=== PATIENT | male | born 1960 | race Caucasian/White ===

== ENCOUNTER 2019-05-14 17:10 | Outpatient (REF) | payer MEDICAID, SELFPAY ==
[2019-05-14 20:15] LABS: Abs Immature Grans 0.01 k/cumm (0.0-0.09); Absolute Basophil Count 0.03 k/cumm (0.0-0.2); Absolute Eosinophil Count 0.02 k/cumm (0.0-0.7); Absolute Monocyte Count 0.42 k/cumm (0.11-0.7); Absolute Neutrophil Count 1.61 k/cumm (1.2-6.7); Basophils % 0.9; Eosinophils % 0.6; HCT 44.9 % (40.0-50.0); HGB 15.3 g/dL (13.5-17.5); Immature Grans % 0.3; Lymphocytes % 38.3; Mean Corp. HGB Concentration 34.1 g/dL (32.0-36.0); Mean Corpuscular Hemoglobin 28.9 pg (27.0-33.0); Mean Corpuscular Volume 84.9 fL (80-95); Mean Platelet Volume 9.7 fL (8.0-11.0); Monocytes % 12.4; Neutrophils % 47.5; Platelet Count 246 x1000/uL (130-400); RBC 5.29 m/cumm (4.50-6.00); RBC Distribution Width 13.1 % (11.8-14.1); White Blood Cell Count 3.39 k/cumm (4.4-10.8)
[2019-05-14 20:40] LABS: ALT 62 U/L (12-78); AST 27 U/L (15-37); Albumin 3.9 g/dL (3.4-5.0); Alkaline Phosphatase 64 U/L (46-116); Anion Gap 9.2 mmol/L (3-11); BUN 18 mg/dL (7-18); Bilirubin, Total 0.3 mg/dL (0.2-1.0); CO2 27.8 mmol/L (21.0-32.0); CREATININE 0.98 mg/dL (0.70-1.30); Calcium 8.2 mg/dL (8.5-10.1); Chloride 102 mmol/L (98-107); Glucose 97 mg/dL (70-100); Potassium 4.4 mmol/L (3.5-5.1); Sodium 139 mmol/L (136-145); Total Protein 7.2 g/dL (6.4-8.2)
[2019-05-16 10:53] LABS: Lyme Ab w Rflx to Lyme Confirm Negative
[2019-05-17 17:21] LABS: Anaplasma phagocytophilum Negative (Negative); B. miyamotoi PCR Negative (Negative); Babesia divergens/MO-1 Negative (Negative); Babesia duncani Negative (Negative); Babesia microti Negative (Negative); Ehrlichia chaffeensis Negative (Negative); Ehrlichia ewingii/canis Negative (Negative); Ehrlichia muris eauclairensis Negative (Negative)
== END 2019-05-14 17:30 ==
LOC: NCHCN 17:10
PROVIDERS: PCP Nurse Practitioner Adult Health; Visit Provider Family Medicine
DX: R50.9 Fever, unspecified (principal)
CPT/HCPCS: 80053; 87798; 85025; 86618; 87207

== ENCOUNTER 2019-07-18 12:29 | Outpatient (REF) | payer MEDICAID, SELFPAY ==
[2019-07-18 13:42] LABS: Calculated LDL 172 mg/dL; Cholesterol 228 mg/dL (50-200); Glucose 102 mg/dL (70-100); HDL Cholesterol 42 mg/dL (40-60); Triglyceride 73 mg/dL (30-150)
== END 2019-07-18 12:49 ==
LOC: NCHCN 12:29
PROVIDERS: PCP Nurse Practitioner Adult Health; Visit Provider Family Medicine
DX: Z00.00 Encounter for general adult medical examination without abnormal findings (principal); Z13.1 Encounter for screening for diabetes mellitus; Z13.220 Encounter for screening for lipoid disorders
CPT/HCPCS: 80061; 82947

== ENCOUNTER 2020-03-11 14:13 | Outpatient (REF) | payer MEDICAID, SELFPAY ==
[2020-03-11 19:48] LABS: Abs Immature Grans 0.01 k/cumm (0.0-0.09); Absolute Basophil Count 0.02 k/cumm (0.0-0.2); Absolute Eosinophil Count 0.07 k/cumm (0.0-0.7); Absolute Lymphocyte Count 1.74 k/cumm (1.2-3.4); Absolute Monocyte Count 0.47 k/cumm (0.11-0.7); Absolute Neutrophil Count 1.82 k/cumm (1.2-6.7); Basophils % 0.5; Eosinophils % 1.7; HCT 46.2 % (40.0-50.0); HGB 15.5 g/dL (13.5-17.5); Immature Grans % 0.2 %; Lymphocytes % 42.1; Mean Corp. HGB Concentration 33.5 g/dL (32.0-36.0); Mean Corpuscular Hemoglobin 28.5 pg (27.0-33.0); Mean Corpuscular Volume 85.1 fL (80-95); Mean Platelet Volume 9.4 fL (8.0-11.0); Monocytes % 11.4; Neutrophils % 44.1; Platelet Count 329 x1000/uL (130-400); RBC 5.43 m/cumm (4.50-6.00); RBC Distribution Width 12.7 % (11.8-14.1); White Blood Cell Count 4.13 k/cumm (4.4-10.8)
[2020-03-13 12:50] LABS: HIV-1/2 Ag & Ab Screen Negative (Negative)
[2020-03-13 13:52] LABS: Hepatitis B Surface Ag Negative (Negative)
== END 2020-03-11 14:33 ==
LOC: NCHCN 14:13
PROVIDERS: PCP Nurse Practitioner Adult Health; Visit Provider Family Medicine
DX: D72.819 Decreased white blood cell count, unspecified (principal); Z11.4 Encounter for screening for human immunodeficiency virus [HIV]; Z11.59 Encounter for screening for other viral diseases
CPT/HCPCS: 87340; 87389; 85025

== ENCOUNTER 2023-11-07 12:06 | Outpatient (REF) | payer MEDICAID, SELFPAY ==
[2023-11-07 16:52] LABS: Calculated LDL 201 mg/dL (<100); Cholesterol 288 mg/dL (<200); HDL Cholesterol 47 mg/dL (40-60); Triglyceride 203 mg/dL (<150)
[2023-11-08 09:25] LABS: PSA, Screening 0.5 ng/mL (<=4.5)
== END 2023-11-07 12:07 | disposition home or self-care (01) ==
LOC: NCHCN 12:06
PROVIDERS: PCP Nurse Practitioner Adult Health; Visit Provider Family Medicine
DX: Z13.220 Encounter for screening for lipoid disorders (principal); Z13.1 Encounter for screening for diabetes mellitus; Z12.5 Encounter for screening for malignant neoplasm of prostate
CPT/HCPCS: 80061; 84153; 83036

== ENCOUNTER 2024-02-09 08:01 | Day surgery (SDC) | payer MEDICAID, SELFPAY ==
--- NOTE | 2024-02-08 22:19 | W.COLOREPORT ---
Date of service: 02/09/24 Time of Service: 09:19 Colonoscopy Report Date of procedure: 02/09/24 Pre-op diagnosis general: crc screening Post-op diagnosis procedure note: other (Polyps/diverticulosis/internal hemorrhoids) Surgeon: Opal Choudhury Anesthesia Type: General:No Airway Estimated blood loss (mL): 1 Pathology: none sent Complications: None Disposition: same day Prep: Miralax/Dulcolax Retraction Time: 20 Procedure Description: After informed consent was obtained the patient was taken to the procedure room and placed in a left decubitous position. Monitors were applied and a time out was done. The patients name, date of , procedure, allergies to medications and metal in their body was reviewed. The patient was then sedated. Once sedated and comfortable a rectal exam was done. External exam was normal. Internal exam revealed a normal sphincter tone and no palpable masses. The scope was then introduced and retrofelexed. Grade 2 internal hemorrhoids x 2 columns were identified. The scope was then advanced to the cecum without difficulty. The TI and appendiceal orifice were identified. The scope was then slowly retracted over 20 minutes back into the rectum. He had x 2 flat 0.5 cm polyps in the cecum. These were removed with a cold biting forcep. All specimen is retrieved and no bleeding is noted. 30 cm he has another 0.5 cm flat polyp that is removed with a cold biting forcep. He has few moderate-sized diverticuli confined to the sigmoid colon. There is no signs of active bleeding or infection. The mucosa is pink and healthy with a normal vascular pattern. The scope was removed and the patient was woken up and taken back to Same day surgery in stable condition. The patient tolerated the procedure well and there were no immediate complications. Follow up: The patient should follow up in 5-7 years, path pd unless they develop changes in bowel habits or other new gastrointestinal complaints. [place] Bowel Prep [place] Bowel Prep Right Colon: 3 Left Colon: 3 Transverse Colon: 3 Total Score: 9
--- NOTE | 2024-02-08 22:20 | PDOC.DSDIS_ITS ---
Date of service: 02/09/24 Time of Service: 10:00 Discharge Plan Disposition Patient Disposition: HOME Condition: Good Discharge Details Reason For Visit: crc screening Attending Provider: Opal Choudhury Primary Care Provider: Max Elam Home Meds and New Rx's Prescriptions: Continued multivitamin 1 EACH tablet 1 ea PO DAILY vardenafil [Levitra] 10 MG tablet 10 mg PO PRN sildenafil 50 mg tablet 50 mg PO DAILY PRN Rx Instructions: administer 30 minutes to 4 hours before activity atorvastatin 40 mg tablet 40 mg PO DAILY Discontinued bisacodyl [Dulcolax (bisacodyl)] 5 mg tablet,delayed release (DR/EC) 5 mg PO ONCE Qty: 4 0RF Rx Instructions: Take per colonoscopy instructions provided by ordering providers office polyethylene glycol 3350 17 gram/dose powder 17 g PO ONCE Qty: 238 0RF Rx Instructions: Take per colonoscopy instructions provided by ordering providers office Discharge Instructions Additional Instructions: DSU Colonoscopy Post- Op Instructions Instructions for Everyone who is given Anesthesia: For your safety, please do the following for the next twenty-four (24) hours: *Do Not operate a motor vehicle (car, truck, motorcycle, etc.) *Do Not drink alcoholic beverages or use any recreational drugs for the first 24 hours or while taking pain medications. The medications in your body may have a reaction that can be dangerous. *Do Not make any important decisions or sign any important papers. Findings: -diverticula-make sure you are moving your bowels on a regular basis and not straining. If you find you are having problems with constipation or straining, it is recommended you start a fiber product such Metamucil. See handout -Adenomatous polyps Follow up: -My office will send you a letter in 2 to 3 weeks time with the results of the polyps and what we want you to repeat the colonoscopy. Most likely 5 to 7 years time. 1. No lifting over 20 pounds or strenuous activity for the first 24 hours after your procedure. After 24 hours there are no restrictions on your activity but you may feel fatigued for a few days. 2. After you arrive home you may have a light meal and return to your normal diet as you can tolerate it without feeling sick to your stomach. 3. You may have a bloated, gaseous feeling in your belly (abdomen) after a colonoscopy. Passing gas and belching will help. Walking or lying down on your left side with your knees flexed may relieve the discomfort. Call the office at [phone] (Office) or [phone] (Hospital) right away if you notice any of the following: a.Vomiting of blood or ?coffee ground stools?. b.Rectal bleeding 1Tbsp, blood clots or continuous bleeding. c.Severe belly (abdominal) pain. d.A hard distended belly (abdomen) and an inability to pass gas. 4. Please don?t expect to have a normal BM (bowel movement) for 2-3 days after your procedure. 5. If there are questions regarding the findings of your procedure, please contact your doctor 6. If you are unable to contact your doctor with a problem, contact the hospital at [phone]. 7. Continue all your regular medications unless directed otherwise. I understand the above instructions and have no questions. Signature of Patient or Adult Escort Name of Responsible Adult Escort Signature of Nurse Date/Time Stand Alone Forms: Anesthesia Discharge Inst., Estrellita Ashby (BRANDON) Activity:: see above Activity:: see above Diet:: see above Discharge Data Discharge Date/Time-TO BE ENTERED AT DEPARTURE: 02/09/24 08:02 DS: Diagnosis Discharge Diagnosis (1) High cholesterol: (2) Diverticula of colon: Status: Acute Asessment and Plan: The patient is seen and examined after their colonoscopy.? The patient has been able to pass gas.? They are not having abdominal pain.? They have been able to tolerate liquids and a snack.? They do not have any nausea or vomiting.? They are not having any chest pain or shortness of breath.??? They are not having any rectal bleeding. Their vital signs have been stable-see nursing notes. We discussed findings during their colonoscopy, and any biopsies that were done/polyps that were removed. The patient will be sent a letter with any biopsy results, and when to repeat the colonoscopy.-see discharge instructions. Patient was given explicit instructions to follow-up regarding colonoscopy-refer to discharge instructions.? We reviewed resumption of medications. Patient verbalized understanding and discharged in stable and satisfactory condition- See nursing notes. (3) Adenomatous polyps: Status: Acute
[2024-02-09 08:17] VITALS: BP 135/85; PULSE 70; RESP 16; TEMP 36.5; O2SAT 97
[2024-02-09] MEDS: Lactated Ringers 1,000 ML 80 ML IV (08:25)
--- NOTE | 2024-02-09 08:36 | ANES.PREOP_ITS ---
General Info Date of Service Date Performed: 02/09/24 Height: 5 ft 7 in Weight: 90.775 kg Body Mass Index (BMI): 31.3 Surgical Procedure: Operation Date: 02/09/24 08:50 Proposed Procedure Side Surgeon p Colonoscopy Opal Choudhury, Actual Procedure Side Surgeon p Colonoscopy Not Applicable Opal Choudhury, Pre-Op Diagnosis Post-Op Diagnosis Screening Meds Allergies and Home Medications Allergies Allergy/AdvReac Type Severity Reaction Status Date / Time hayfever AdvReac Intermediate congestion, Uncoded 02/09/24 08:15 sneezing Home Medication Medication Instructions Recorded Levitra 10 mg tablet (vardenafil) 10 mg PO PRN 10/21/13 multivitamin 1 ea PO DAILY 10/21/13 atorvastatin 40 mg tablet 40 mg PO DAILY 12/18/23 sildenafil 50 mg tablet 50 mg PO DAILY PRN 12/18/23 Current Visit Medications: Current Medications Generic Name Dose Route Start Last Admin Trade Name Freq PRN Reason Stop Dose Admin Hyoscyamine Sulfate 0.125 mg 02/09/24 03:02 Hyoscyamine 0.125 Mg Sl/Oral/Chew SL 03/10/24 03:01 DIRECTED PRN Ringer's Solution 1,000 mls @ 80 mls/hr 02/09/24 06:00 02/09/24 08:25 IV 03/09/24 23:59 80 mls/hr INFUSION UDAY Administration IV Miscellaneous Supplies 1 each 02/09/24 06:00 Iv Access IV 03/09/24 23:59 DIRECTED UDAY Ondansetron HCl 4 mg 02/09/24 03:02 Ondansetron 4 Mg/2 Ml Vial IVP 03/10/24 03:01 Q4H PRN PRN Nausea / Vomiting Sodium Chloride 0 ml 02/09/24 06:00 Normal Saline Flush 10 Ml Syr IV 03/09/24 23:59 PRN PRN Sodium Chloride 0 ml 02/09/24 06:00 Normal Saline 10 Ml Vial IJ 03/09/24 23:59 DIRECTED PRN Sterile Water 0 ml 02/09/24 06:00 Water,Injection,Sterile 10 Ml Vial IJ 03/09/24 23:59 DIRECTED PRN PFSH Medical History Medical History (Updated 02/07/24 @ 12:53 by Patrick Kim) High cholesterol Surgical History Surgical History (Updated 02/07/24 @ 12:53 by Patrick Kim) Hx of colonoscopy Tobacco Smoking/Tobacco Use Status: Never Alcohol Alcohol Intake: current Alcohol intake frequency: a few times a week Alcohol type: beer and wine Substance Use Substance use: Never Substance use type: does not use Vital Signs and Lab Results Vital Signs Most Recent Vital Signs in EMR: Most Recent Vital Signs Temp Pulse Resp BP Pulse Ox 36.5 C 70 16 135/85 97 02/09/24 08:17 02/09/24 08:17 02/09/24 08:17 02/09/24 08:17 02/09/24 08:17 Lab Results Blood Type / Crossmatch: No Data to Display Complete Blood Count: No Data to Display Complete Metabolic Panel: No Data to Display Liver Function Panel: No Data to Display Coagulation Panel: No Data to Display Cardiac Panel: No Data to Display Arterial Blood Gas: No Data to Display Venous Blood Gas: No Data to Display Pancreas Panel: No Data to Display Thyroid Panel: No Data to Display Infectious Disease: 2 No Data to Display Blood Cultures: No Data to Display Toxicology Panel: No Data to Display Anesthesia Assessment and Plan Anesthesia History Personal History: No History of Anesthesia Complications Family History: No Family History of Anesthesia Complications Exercise Tolerance Exercise Tolerance: Metabolic Equivalents>4 Pertinent Negatives Pertinent Negatives: No Symptoms of GERD Cardiac & Pulmonary Exam Cardiac Exam: Normal S1/S2 Heart Sounds Pulmonary Exam: Clear Bilateral Breath Sounds Implantable Cardiac Device Does patient have a Pacemaker or an ICD?: No Airway Exam Known Difficult Airway: No Mallampati Class: 2 Mouth Opening: Normal (> 3cm) Thyromental Distance: Greater than 3 cm Neck Range of Motion: Full ROM Neck Circumference: Normal Teeth Condition: Normal Dentition ASA Classification ASA Score: ASA 2 Emergency Case?: No NPO Status NPO Status: NPO Clears >2 hours, Solids >8 hours Anesthesia Plan Resuscitation Status: Full Code Anesthesia Technique: General Anesthesia Airway Planned: Natural Airway Monitors Used: Standard Monitors
[2024-02-09 08:37] VITALS: BMI 31.3
--- NOTE | 2024-02-09 08:49 | BOWEL_PTH ---
PATIENT: Albert Mckeon LOC: [facility] U#:[id number] AGE/SX: 63/M ROOM: RE02/09/[address]: Opal Choudhury : 1960 BED: DIS: 02/09/2024 SPEC #: [id number] RECD: 02/09/24 12:57 STATUS: LINDY REQ #: [id number] LINDA: 02/09/24 08:[address]: Opal Choudhury DEPT: Surgical Specimen RECD BY: Sarah Temple ENTERED: 02/09/24 12:59 SP TYPE: Bowel OTHR DR: Max Elam Tissues: 1 - BIOPSY BOWEL 2 - BIOPSY BOWEL Procedures: GROSS AND MICRO LEVEL 4 Comments: [id number]
[2024-02-09 09:17] VITALS: BP 116/70; PULSE 65; RESP 16; TEMP 36.5; O2SAT 96
[2024-02-09 09:29] VITALS: BP 118/85; PULSE 72; RESP 16; TEMP 36.6; O2SAT 98
--- NOTE | 2024-02-09 10:16 | W.ANESPOSTOP ---
Postoperative Evaluation Date, Time and Location Date Performed: 02/09/24 Time Performed: 10:17 Patient Location: Day Surgery Unit Vital Signs Most Recent Imported Vital Signs: Most Recent Vital Signs Temp Pulse Resp BP Pulse Ox 36.6 C 72 16 118/85 98 02/09/24 09:29 02/09/24 09:29 02/09/24 09:29 02/09/24 09:29 02/09/24 09:29 Pain Score Most Recent Pain Score: Most Recent Pain Score Pain Level 0 02/09/24 09:29 Assessment Mental Status: Awake (Alert & Oriented to Patient Baseline) Airway and Respiratory Function: Patent airway with normal (patient baseline) respiratory exam Cardiovascular Function: Hemodynamically Stable Hydration Status: Adequately Hydrated Nausea & Vomiting: No Nausea or Vomiting Pain: Pt. Denies Any Pain Peripheral Nerve Block: Patient did not receive a nerve block
== END 2024-02-09 08:02 | disposition home or self-care (01) ==
LOC: SUR 08:02
PROVIDERS: PCP Family Medicine; Visit Provider Surgery
PROC: 0DJD8ZZ Inspection of Lower Intestinal Tract, Via Natural or Artificial Opening Endoscopic (ICD-10-PCS; CPT 45378; principal; 2024-02-09 08:45)
DX: K57.30 Diverticulosis of large intestine without perforation or abscess without bleeding; Z12.11 Encounter for screening for malignant neoplasm of colon; K64.1 Second degree hemorrhoids; D12.0 Benign neoplasm of cecum
CPT/HCPCS: 45380; 88305; J2704